=== PATIENT | female | born 1940 | race Caucasian/White ===

== ENCOUNTER 2018-01-10 10:42 | Inpatient (IN) ==
[~2018-01-10 10:42] MED LIST: Iohexol 350 MG/ML 100 ML Vial (for Cath Lab) IVCONTRAST ONE
[2018-01-10 11:09] LABS: Bilirubin,Urine Negative (Negative); Clarity,Urine Clear (Clear); Glucose,Urine (UA) Negative (Negative); Leukocyte Esterase,Urine Negative (Negative); Nitrite,Urine Negative (Negative); PH,Urine 5.5 (5.0-8.5); Specific Gravity,Urine Less/Equal 1.005 (1.002-1.035); Urobilinogen,Urine 0.2 mg/dL (Less than 2)
[2018-01-10 11:15] LABS: Color,Urine Straw (Yellw/Straw); Squamous Epithelial Cell,Urine 0-5 /hpf (0-5); WBC,Urine 0-5 /hpf (0-5)
[2018-01-10] MEDS ORDERED: hydrALAZINE HCl Inj 20 MG/ML Vial IV.PUSH ONE (12:19)
[2018-01-10] MEDS ORDERED: Labetalol HCl Inj 100 MG/20 ML Vial IV.PUSH ONE (12:47)
[2018-01-10 12:56] LABS: Chloride 108 meq/L (98-107); Potassium 3.9 meq/L (3.5-5.1); Sodium 141 meq/L (136-145)
[2018-01-10 13:00] LABS: Albumin 3.8 g/dL (3.4-5.0); Anion Gap 8 meq/L (5-15); Blood Urea Nitrogen 14 mg/dL (7-18); Calcium 8.7 mg/dL (8.5-10.1); Carbon Dioxide 24.8 meq/L (21.0-32.0); Glucose,Random 98 mg/dL (74-106)
[2018-01-10 13:01] LABS: Activated Partial Thrombo Time 25.4 sec (24.3-30.1); Prothrombin Time 10.6 sec (9.8-11.6)
[2018-01-10 13:03] LABS: Alanine Aminotransferase 34 U/L (10-53); Aspartate Aminotransferase 30 U/L (15-37); Glomerular Filtration Rate 74 mL/min (>89)
[2018-01-10 13:05] LABS: Total Protein 7.9 g/dL (6.4-8.2)
[2018-01-10 13:06] LABS: Alkaline Phosphatase 52 U/L (45-117)
[2018-01-10 13:10] LABS: Baso % (Auto) 0.7 % (0.0-2.0); Eos # (Auto) 0.1 th/mm3 (0.0-0.4); Eos % (Auto) 1.8 % (0.0-4.0); Hematocrit 38.8 % (35.0-46.0); Hemoglobin 13.1 gm/dL (11.6-15.3); Lymph # (Auto) 1.1 th/mm3 (1.0-4.8); Lymph % (Auto) 22.1 % (9.0-44.0); Mean Corpuscular HGB Conc 33.8 % (32.0-36.0); Mean Corpuscular Hemoglobin 31.3 pg (27.0-34.0); Mean Corpuscular Volume 92.5 fL (80.0-100.0); Mean Platelet Volume 7.9 fL (7.0-11.0); Mono # (Auto) 0.3 th/mm3 (0.0-0.9); Mono % (Auto) 6.9 % (0.0-8.0); Neut # (Auto) 3.4 th/mm3 (1.8-7.7); Neut % (Auto) 68.5 % (16.0-70.0); Platelet Count 261 th/mm3 (150-450); Red Blood Count 4.19 mil/mm3 (4.00-5.30); Red Cell Distribution Width 13.2 % (11.6-17.2); White Blood Count 4.9 th/mm3 (4.0-11.0)
[2018-01-10 13:11] LABS: Troponin I 0.86 ng/mL (0.02-0.05)
--- NOTE | 2018-01-10 13:14 | ED ---
HPI General Chief complaint: Hypertension Stated complaint: possible high bp/pain down neck/lt shoulder Time Seen by Provider: 01/10/18 12:05 Source: patient Mode of arrival: ambulatory Limitations: no limitations History of Present Illness HPI narrative: Patient is a 77-year-old female who presents the emergency room for evaluation of possible hypertension. Patient reports that she follows up with a chiropractor as she does have chronic hip/back pain. Patient went for manipulation today and her blood pressure was checked, patient's blood pressure was elevated at 189/90. Reports concerns that her blood pressure was high, the chiropractor told her to go directly to the emergency room. Patient does follow-up with a primary care doctor, Dr. Julianna Beck, she was last seen about 6 months ago and she had a normal blood pressure at that point. Patient does reports that she did have hypertension when she was on CellCept for her Sjorn's - since she is no longer on CellCept - she is no longer taking any antihypertensives. Patient reports that for the past month, she has been having neck and shoulder pain. Patient reports that she has been having radicular pain down her left shoulder to her left fingers -denies any injuries to her neck or shoulder. Reports that she has not had manipulation to her neck. Reports that pain has increased over the past week. Denies any chest pain/sob. Denies any diaphoresis. Denies n/v. Patient with no other complaints. Related Data Home Medications Medication Instructions Recorded Confirmed No Known Home Medications 01/10/18 01/10/18 Previous Rx's Medication Instructions Recorded amlodipine [Norvasc] 5 mg PO DAILY #90 tab 01/11/18 aspirin [Omar Chewable Aspirin] 81 mg PO DAILY #90 tab 01/11/18 atorvastatin [Lipitor] 40 mg PO DAILY #90 tab 01/11/18 clopidogrel [Plavix] 75 mg PO DAILY #30 tab 01/11/18 metoprolol tartrate 25 mg PO BID #60 tab 01/11/18 Allergies Allergy/AdvReac Type Severity Reaction Status Date / Time morphine Allergy Hives Verified 01/10/18 11:58 azathioprine [From Imuran] AdvReac Nausea/Vomi Verified 01/10/18 11:01 ting hydroxychloroquine AdvReac Itching, Verified 01/10/18 11:01 [From Plaquenil] Generalized mycophenolate mofetil AdvReac Joint Pain Verified 01/10/18 11:01 [From CellCept] Review of Systems ROS: all other systems reviewed are negative [facility] Medical History Medical History Rheumatoid arthritis (Acute) Surgical History Surgical History H/O lithotripsy (Acute) Family History Family History Other Family history of heart disease Social History Social History Substance History: No History of Abuse Second Hand Smoke Exposure: No Smoking Status: Former smoker Number of Pack-Years (if former smoker): 25 How Often Do You Have a Drink Containing Alcohol: 2 to 3 times a week Recent Travel in [facility] within the Last 8 Weeks: No Recent Out of Country Travel within the Last 8 Weeks: No Immunization History Tetanus Immunization: Unsure Hx Influenza Vaccine This Season: No Exam Narrative Exam Narrative: GENERAL: NAD SKIN: Focused skin assessment warm/dry. HEAD: Atraumatic. Normocephalic. EYES: Pupils equal and round. No scleral icterus. No injection or drainage. ENT: No nasal bleeding or discharge. Mucous membranes pink and moist. NECK: Trachea midline. No JVD. CARDIOVASCULAR: Regular rate and rhythm. No murmur appreciated. RESPIRATORY: No accessory muscle use. Clear to auscultation. Breath sounds equal bilaterally. GASTROINTESTINAL: Abdomen soft, non-tender, nondistended. Hepatic and splenic margins not palpable. MUSCULOSKELETAL: No obvious deformities. No clubbing. No cyanosis. No edema. NEUROLOGICAL: Awake and alert. No obvious cranial nerve deficits. Motor grossly within normal limits. Normal speech. CN 2- 12 grossly intact with no neurological deficits PSYCHIATRIC: Appropriate mood and affect; insight and judgment normal. Course Initial Documented Vital Signs Temperature 98.5 F 01/10/18 10:52 Pulse Rate 90 01/10/18 10:52 Respiratory Rate 18 01/10/18 10:52 Blood Pressure 230/93 H 01/10/18 10:52 Pulse Oximetry 96 01/10/18 10:52 Last Documented Vital Signs Temperature 98.1 F 01/11/18 07:37 Pulse Rate 80 01/11/18 10:00 Respiratory Rate 18 01/11/18 07:37 Blood Pressure 122/68 09/15/18 07:37 Pulse Oximetry 97 01/11/18 08:38 Critical Care Time Critical Care Time: Yes Total Critical Care Time: 30 Attestation: Aggregate critical care time was 30 minutes. Time to perform other separately billable procedures was not included in the critical care time. My time did not include minutes spent treating any other patients simultaneously or on activities that did not directly contribute to the patient's treatment. The services I provided to this patient were to treat and/or prevent clinically significant deterioration that could result in: , decompensation, deterioration I provided critical care services requiring my management, as noted below: Chart data review, documentation time, medication orders and management, vital sign assessments/reviewing monitor data, ordering and reviewing lab tests, ordering and interpreting/reviewing x-rays and diagnostic studies, care of the patient and discussion of the patient with the admitting physicians. Medical Decision Making MDM Narrative Medical decision making narrative: During the course of the patients emergency department visit, the patients history, examination, and differential diagnosis were reviewed with the patient. The patient was placed on a surveillance system monitor with oximetry and frequent blood pressure monitoring. The patient had an IV access obtained and blood work sent for analysis. The patient was initially provided with IV labetalol as her blood pressure was 199/86 The patients laboratory studies were reviewed and remarkable for a positive trop of 0.86. She will be given a dose of aspirin and start heparin drip Case reviewed with Dr. Kadeem Taveras - ronni transfer to [facility] for possible cardiac cath, will keep patient NPO Dr. Hutchinson accepts patient to service. Medical Screen Exam Complete: Yes Emergency Medical Condition: Yes Differential Diagnosis Differential Diagnosis: Hypertensive urgency, angina, electrolyte abnormality, cervical radiculopathy Lab Data Result diagrams: 01/11/18 05:09 01/11/18 05:09 Lab Results 01/10/18 01/10/18 01/10/18 Range/Units 11:00 12:30 12:30 CBC w Diff Auto diff final WBC 4.9 (4.0-11.0) th/mm3 RBC 4.19 (4.00-5.30) mil/mm3 Hgb 13.1 (11.6-15.3) gm/dL Hct 38.8 (35.0-46.0) % MCV 92.5 (80.0-100.0) fL MCH 31.3 (27.0-34.0) pg MCHC 33.8 (32.0-36.0) % RDW 13.2 (11.6-17.2) % Plt Count 261 (150-450) th/mm3 MPV 7.9 (7.0-11.0) fL Neut % (Auto) 68.5 (16.0-70.0) % Lymph % (Auto) 22.1 (9.0-44.0) % Emmons % (Auto) 6.9 (0.0-8.0) % Eos % (Auto) 1.8 (0.0-4.0) % Baso % (Auto) 0.7 (0.0-2.0) % Neut # (Auto) 3.4 (1.8-7.7) th/mm3 Lymph # (Auto) 1.1 (1.0-4.8) th/mm3 Emmons # (Auto) 0.3 (0.0-0.9) th/mm3 Eos # (Auto) 0.1 (0.0-0.4) th/mm3 Baso # (Auto) 0.0 (0.0-0.2) th/mm3 WBC Differential . Differential Comment . PT 10.6 (9.8-11.6) sec INR 1.0 Ratio APTT 25.4 (24.3-30.1) sec Sodium (136-145) meq/L Potassium (3.5-5.1) meq/L Chloride (98-107) meq/L Carbon Dioxide (21.0-32.0) meq/L Anion Gap (5-15) meq/L BUN (7-18) mg/dL Creatinine (0.50-1.00) mg/dL Estimated GFR (>89) mL/min Random Glucose (74-106) mg/dL Calcium (8.5-10.1) mg/dL Total Bilirubin (0.2-1.0) mg/dL AST (15-37) U/L ALT (10-53) U/L Alkaline Phosphatase (45-117) U/L Total Creatine Kinase (26-192) U/L CK-MB (CK-2) (0.5-3.6) ng/mL CK-MB (CK-2) % (0.0-4.0) % Troponin I (0.02-0.05) ng/mL Total Protein (6.4-8.2) g/dL Albumin (3.4-5.0) g/dL Triglycerides (42-150) mg/dL Cholesterol (120-200) mg/dL LDL Cholesterol, Calc (0-99) mg/dL HDL Cholesterol (40.0-60.0) mg/dL Cholesterol/HDL Ratio Ratio TSH (0.358-3.740) uIU/mL Ur Collection Type Clean catch Urine Color Straw (Yellw/Straw) Urine Clarity Clear (Clear) Urine pH 5.5 (5.0-8.5) Ur Specific [employer] Less/equal 1.005 (1.002-1.035) Urine Protein Negative (Neg-Trace) mg/dL Urine Glucose (UA) Negative (Negative) mg/dL Urine Ketones Negative (Negative) mg/dL Urine Occult Blood Negative (Negative) Urine Nitrate Negative (Negative) Urine Bilirubin Negative (Negative) Urine Urobilinogen 0.2 (Less than 2) mg/dL Ur Leukocyte Esterase Negative (Negative) Urine WBC 0-5 (0-5) /hpf Ur Squamous Epith Cells 0-5 (0-5) /hpf Micro UA Comment Culture not ind Ur Microscopic Review Microscopic reviewed Urine Culture Comments Culture not ind 01/10/18 01/10/18 01/10/18 Range/Units 12:30 12:30 15:15 CBC w Diff WBC (4.0-11.0) th/mm3 RBC (4.00-5.30) mil/mm3 Hgb (11.6-15.3) gm/dL Hct (35.0-46.0) % MCV (80.0-100.0) fL MCH (27.0-34.0) pg MCHC (32.0-36.0) % RDW (11.6-17.2) % Plt Count (150-450) th/mm3 MPV (7.0-11.0) fL Neut % (Auto) (16.0-70.0) % Lymph % (Auto) (9.0-44.0) % Emmons % (Auto) (0.0-8.0) % Eos % (Auto) (0.0-4.0) % Baso % (Auto) (0.0-2.0) % Neut # (Auto) (1.8-7.7) th/mm3 Lymph # (Auto) (1.0-4.8) th/mm3 Emmons # (Auto) (0.0-0.9) th/mm3 Eos # (Auto) (0.0-0.4) th/mm3 Baso # (Auto) (0.0-0.2) th/mm3 WBC Differential Differential Comment PT (9.8-11.6) sec INR Ratio APTT (24.3-30.1) sec Sodium 141 (136-145) meq/L Potassium 3.9 (3.5-5.1) meq/L Chloride 108 H (98-107) meq/L Carbon Dioxide 24.8 (21.0-32.0) meq/L Anion Gap 8 (5-15) meq/L BUN 14 (7-18) mg/dL Creatinine 0.76 (0.50-1.00) mg/dL Estimated GFR 74 L (>89) mL/min Random Glucose 98 (74-106) mg/dL Calcium 8.7 (8.5-10.1) mg/dL Total Bilirubin 0.4 (0.2-1.0) mg/dL AST 30 (15-37) U/L ALT 34 (10-53) U/L Alkaline Phosphatase 52 (45-117) U/L Total Creatine Kinase 198 H (26-192) U/L CK-MB (CK-2) 4.5 H (0.5-3.6) ng/mL CK-MB (CK-2) % 2.3 (0.0-4.0) % Troponin I 0.86 H* 2.19 H* D (0.02-0.05) ng/mL Total Protein 7.9 (6.4-8.2) g/dL Albumin 3.8 (3.4-5.0) g/dL Triglycerides (42-150) mg/dL Cholesterol (120-200) mg/dL LDL Cholesterol, Calc (0-99) mg/dL HDL Cholesterol (40.0-60.0) mg/dL Cholesterol/HDL Ratio Ratio TSH 0.716 (0.358-3.740) uIU/mL Ur Collection Type Urine Color (Yellw/Straw) Urine Clarity (Clear) Urine pH (5.0-8.5) Ur Specific [employer] (1.002-1.035) Urine Protein (Neg-Trace) mg/dL Urine Glucose (UA) (Negative) mg/dL Urine Ketones (Negative) mg/dL Urine Occult Blood (Negative) Urine Nitrate (Negative) Urine Bilirubin (Negative) Urine Urobilinogen (Less than 2) mg/dL Ur Leukocyte Esterase (Negative) Urine WBC (0-5) /hpf Ur Squamous Epith Cells (0-5) /hpf Micro UA Comment Ur Microscopic Review Urine Culture Comments 01/11/18 01/11/18 Range/Units 05:09 05:09 CBC w Diff WBC 4.2 (4.0-11.0) th/mm3 RBC 3.75 L (4.00-5.30) mil/mm3 Hgb 11.6 (11.6-15.3) gm/dL Hct 35.0 (35.0-46.0) % MCV 93.5 (80.0-100.0) fL MCH 30.8 (27.0-34.0) pg MCHC 33.0 (32.0-36.0) % RDW 14.0 (11.6-17.2) % Plt Count 217 (150-450) th/mm3 MPV 7.7 (7.0-11.0) fL Neut % (Auto) 55.7 (16.0-70.0) % Lymph % (Auto) 28.2 (9.0-44.0) % Emmons % (Auto) 11.1 H (0.0-8.0) % Eos % (Auto) 4.0 (0.0-4.0) % Baso % (Auto) 1.0 (0.0-2.0) % Neut # (Auto) 2.3 (1.8-7.7) th/mm3 Lymph # (Auto) 1.2 (1.0-4.8) th/mm3 Emmons # (Auto) 0.5 (0.0-0.9) th/mm3 Eos # (Auto) 0.2 (0.0-0.4) th/mm3 Baso # (Auto) 0.0 (0.0-0.2) th/mm3 WBC Differential . Differential Comment Auto diff final PT (9.8-11.6) sec INR Ratio APTT (24.3-30.1) sec Sodium 143 (136-145) meq/L Potassium 3.4 L (3.5-5.1) meq/L Chloride 109 H (98-107) meq/L Carbon Dioxide 25.3 (21.0-32.0) meq/L Anion Gap 9 (5-15) meq/L BUN 12 (7-18) mg/dL Creatinine 0.70 (0.50-1.00) mg/dL Estimated GFR 82 L (>89) mL/min Random Glucose 89 (74-106) mg/dL Calcium 8.0 L (8.5-10.1) mg/dL Total Bilirubin (0.2-1.0) mg/dL AST (15-37) U/L ALT (10-53) U/L Alkaline Phosphatase (45-117) U/L Total Creatine Kinase 159 (26-192) U/L CK-MB (CK-2) (0.5-3.6) ng/mL CK-MB (CK-2) % (0.0-4.0) % Troponin I (0.02-0.05) ng/mL Total Protein (6.4-8.2) g/dL Albumin (3.4-5.0) g/dL Triglycerides 226 H (42-150) mg/dL Cholesterol 219 H (120-200) mg/dL LDL Cholesterol, Calc 131 H (0-99) mg/dL HDL Cholesterol 42.5 (40.0-60.0) mg/dL Cholesterol/HDL Ratio 5.15 Ratio TSH (0.358-3.740) uIU/mL Ur Collection Type Urine Color (Yellw/Straw) Urine Clarity (Clear) Urine pH (5.0-8.5) Ur Specific [employer] (1.002-1.035) Urine Protein (Neg-Trace) mg/dL Urine Glucose (UA) (Negative) mg/dL Urine Ketones (Negative) mg/dL Urine Occult Blood (Negative) Urine Nitrate (Negative) Urine Bilirubin (Negative) Urine Urobilinogen (Less than 2) mg/dL Ur Leukocyte Esterase (Negative) Urine WBC (0-5) /hpf Ur Squamous Epith Cells (0-5) /hpf Micro UA Comment Ur Microscopic Review Urine Culture Comments Imaging Data Radiologist's impression: Cervical Spine CT 01/10/18 12:16 CONCLUSION: 1. Moderate to severe degenerative disc disease. 2. Broad-based posterior disc protrusions at the C4-5 and C5-6 with epidural effacement but no significant spinal cord compression. 3. Moderate to severe degenerative disc disease at C6-7 with posterior disc osteophyte complex causing mild epidural effacement. 4. Mild to moderate foraminal encroachment as described. 5. No acute bony abnormality. Chest X-Ray 01/10/18 12:16 CONCLUSION: COPD No evidence of acute process. Head CT 01/10/18 12:16 CONCLUSION: No acute intracranial findings. . Shoulder X-Ray 01/10/18 12:16 CONCLUSION: Left shoulder series within normal limits. ECG Data EKG Prior to Arrival: No Attestation: I personally reviewed and interpreted this ECG as follows: Interpretation: EKG at 1226: NSR at 82bpm, qt/qtc: 387/425, no acute st or t wave changes Discharge Plan Discharge Disposition Patient Disposition: 01 Discharge Home Discharge Condition Condition: Good Discharge Order Discharge Orders: Discharge Order (Routine); Ordered 01/11/18 Ordered By: Alisha Vigil Discharge Details Anticipated Discharge Date: 01/11/18 Physicians Team ED Provider: Ramona Benson Primary Care Provider: UNKNOWN, Attending Provider: Alisha Vigil Other Providers: Kadeem Taveras Status ED Status: Left Department Discharge Information Discharge Date/Time: 01/10/18 15:30
--- NOTE | 2018-01-10 13:19 | XR ---
EXAM DATE: 01/10/2018 1:05 PM EDT AGE/SEX: 77 years / Female INDICATIONS: Pain and tingling in left shoulder and left side of neck. CLINICAL DATA: This is the patient's initial encounter. Patient reports that signs and symptoms have been present for 2 weeks and indicates a pain score of 2/10. MEDICAL/SURGICAL HISTORY: None. None. COMPARISON: POI, XR SHOULDER (MIN 4 VIEWS), LEFT, 05/16/2017. . FINDINGS: 8 views of the left shoulder. Bone alignment within normal limits. No evidence of fracture. Acromiocl avicular joint within normal limits. CONCLUSION: Left shoulder series within normal limits. Electronically signed by: Jeff Btuler MD 01/10/2018 1:17 PM EDT
--- NOTE | 2018-01-10 13:19 | XR ---
EXAM DATE: 01/10/2018 1:03 PM EDT AGE/SEX: 77 years / Female INDICATIONS: Pain and tingling in left shoulder and left side of neck. CLINICAL DATA: This is the patient's initial encounter. Patient reports that signs and symptoms have been present for 2 weeks and indicates a pain score of 2/10. MEDICAL/SURGICAL HISTORY: None. None. COMPARISON: No prior exams available for comparison. FINDINGS: Lungs are hyperinflated. There is no evidence of acute airspace disease, suspicious nodular densities or effusions. Heart is within normal limits in size. Osseous structures are intact. CONCLUSION: COPD No evidence of acute process. Electronically signed by: Xander Samayoa MD 01/10/2018 1:17 PM EDT
--- NOTE | 2018-01-10 13:20 | CT ---
EXAM DATE: 01/10/2018 1:13 PM EDT AGE/SEX: 77 years / Female INDICATIONS: Cephalgia. Elevated blood pressure. CLINICAL DATA: This is the patient's initial encounter. Patient reports that signs and symptoms have been present for 1 week and indicates a pain score of 2/10. MEDICAL/SURGICAL HISTORY: Hypertension. Renal calculi. Lithotripsy. RADIATION DOSE: 60.90 CTDI (mGy) COMPARISON: No prior exams available for comparison. TECHNIQUE: CT of the head without contrast. Using automated exposure control and adjustment of the mA and/or kV according to patient size, radiation dose was kept as low as reasonably achievable to ob tain optimal diagnostic quality images. DICOM format image data is available electronically for revi ew and comparison. FINDINGS: Cerebrum: The ventricles are normal for age. No evidence of midline shift, mass lesion, hemorrhage or acute infarction. No extraaxial fluid collections are seen. Periventricular white matter hypodens ities indicating chronic ischemic changes seen in the frontal regions bilaterally Posterior Fossa: The cerebellum and brainstem are intact. The 4th ventricle is midline. The cerebe llopontine angle is unremarkable. Extracranial: The visualized portion of the orbits is intact. Skull: The calvaria is intact. No evidence of skull fracture. CONCLUSION: No acute intracranial findings. . Electronically signed by: Jeff Butler MD 01/10/2018 1:19 PM EDT
--- NOTE | 2018-01-10 13:41 | CT ---
EXAM DATE: 01/10/2018 1:22 PM EDT AGE/SEX: 77 years / Female INDICATIONS: Neck pain with radiculopathy down left arm. Tingling into left fingers. CLINICAL DATA: This is the patient's initial encounter. Patient reports that signs and symptoms have been present for 1 week and indicates a pain score of 6/10. MEDICAL/SURGICAL HISTORY: Hypertension. Renal calculi. Lithotripsy. RADIATION DOSE: 25.24 CTDI (mGy) COMPARISON: No prior exams available for comparison. TECHNIQUE: Contiguous axial images were obtained using helical multirow detector technique. The vol umetric data was post-processed with multiplanar reconstruction in oblique axial, sagittal, and coron al planes. Using automated exposure control and adjustment of the mA and/or kV according to patient s ize, radiation dose was kept as low as reasonably achievable to obtain optimal diagnostic quality ajay ges. DICOM format image data is available electronically for review and comparison. FINDINGS: ALIGNMENT: Vertebral bodies are satisfactorily aligned without evidence of listhesis. FACET AND OSSEOUS STRUCTURES: Vertebral body height is well-maintained. There is no evidence of acut e fracture, or destructive changes. Moderate hypertrophic facet arthropathy is identified of the righ t at C2-3. INTERVERTEBRAL DISC SPACES: Degenerative disc disease ranging from mild to moderately severe is note d. C2-3: Mild degenerative disc disease with disc space narrowing. There is no evidence of disc herniati on, foraminal encroachment or spinal stenosis. C3-4: Moderate degenerative disc disease with disc space narrowing and marginal spondylosis. There is a broad-based posterior disc osteophyte complex with mild anterior epidural effacement and mild left foraminal encroachment. C4-5: Moderate degenerative disc disease with marginal spondylosis. There is a moderate-sized central and right paracentral disc protrusion with anterior epidural effacement. There is no significant bon y encroachment of the neural foramen. C5-6: Moderate to severe degenerative disc disease with disc space narrowing and marginal spondylosis . There is a mild to moderate broad-based disc protrusion with anterior epidural effacement. There is no significant foraminal encroachment. C6-7: Moderate to severe degenerative disc disease with disc space narrowing. There is broad-based di sc osteophyte complex with mild anterior epidural effacement and moderate bilateral foraminal encroac hment. C7-T1: Unremarkable NEUROLOGIC STRUCTURES: No evidence of significant spinal cord compression. . CONCLUSION: 1. Moderate to severe degenerative disc disease. 2. Broad-based posterior disc protrusions at the C4-5 and C5-6 with epidural effacement but no signi ficant spinal cord compression. 3. Moderate to severe degenerative disc disease at C6-7 with posterior disc osteophyte complex causi ng mild epidural effacement. 4. Mild to moderate foraminal encroachment as described. 5. No acute bony abnormality. Electronically signed by: Xander Samayoa MD 01/10/2018 1:40 PM EDT
[2018-01-10] MEDS ORDERED: Heparin 10,000 UNITS/10 ML Vial (for IV use) IV.PUSH STA (13:44)
[2018-01-10] MEDS ORDERED: Heparin Drip 25,000 UNIT/250 ML BAG IV.CONT PRN (13:44)
[2018-01-10] MEDS ORDERED: ALPRAZolam 0.25 MG Tablet PO PRN (14:19)
[2018-01-10] MEDS ORDERED: Acetaminophen 325 MG Tablet PO PRN (14:19)
[2018-01-10] MEDS ORDERED: Docusate Sodium 100 MG Capsule PO PRN (14:19)
[2018-01-10] MEDS ORDERED: Metoprolol Inj 5 MG/5 ML Vial IV.PUSH PRN (14:24)
--- NOTE | 2018-01-10 14:35 | P.HP ---
History of Present Illness Primary Care Physician: UNKNOWN Chief Complaint: Sent here by chiropractor for elevated blood pressure History of Present Illness: 77-year-old female with history of rheumatoid arthritis, possible lupus who presented the hospital at the request of her chiropractor for evaluation of elevated blood pressure. Patient was at her chiropractor's office today for evaluation and treatment for neck pain that she has been experiencing for the last 2 weeks. Patient states that the pain has been constant discomfort on a scale of 5/10 in the left neck with pain radiating into her left shoulder. Patient indicates that over the last week, patient has had worsening of symptoms as well as whenever she lies down she gets numbness in her left arm. T patient was at the chiropractor's office today for treatment when they took her blood pressure and was found to be significantly elevated, because of that the chiropractor's office sent her straight to the emergency department for evaluation. Patient denies any previous history of hypertension, patient indicates that in the past, she cannot explain exactly how long ago she used to be on a diuretic in which she states that it was for her lupus/rheumatoid arthritis. The patient denies any chest pain, nausea, vomiting, shortness of breath, dyspnea, diaphoresis. When the patient got to the emergency department she was found to have significant blood pressure elevation 230/93. The patient had workup performed and was found to have an elevated troponin at 0.86. EKGs were reviewed which did not show any acute ST elevations. [employer] Analyst was called who recommended the patient be transferred to the [facility] for cardiac catheterization. - Diagnosis (1) Hypertensive emergency (2) Non-ST elevated myocardial infarction (3) Elevated troponin Review of Systems All other systems reviewed negative except as stated in HPI Musculoskeletal: Reports neck pain, Reports numbness (Left arm), Reports radiating pain into limb (Left shoulder) [facility] - History History Provided By: Patient - Medical History Medical History: Medical History (Last Reviewed 01/10/18 @ 14:17 by KOREY Leigh) Rheumatoid arthritis - Surgical History Surgical History: Surgical History (Last Reviewed 01/10/18 @ 14:17 by KOREY Leigh) H/O lithotripsy - Family History Family History: Family History (Last Updated 01/10/18 @ 14:17 by KOREY Leigh) Other Family history of heart disease - Tobacco History Second Hand Smoke Exposure: No Tobacco Use In Past 30 Days: No Smoking Status: Former smoker Number of Pack Years (if former smoker): 25 - Alcohol History How Often Do You Have a Drink Containing Alcohol: 2 to 3 times a week - Substance Use History Substance History: No History of Abuse - Travel History Recent Travel in the [place] Within the Last 8 Weeks: No Recent Travel Out of the Country Within the Last 8 Weeks: No - Immunization History Tetanus Immunization: Unsure Hx Influenza Vaccine This Season: No Medications and Allergies Active Medications: Active Medications Heparin Sodium/Dextrose (Heparin/D5w 25,000 U/250 Ml) 25,000 unit in 250 mls @ 0 mls/hr IV.CONT TITRATE PRN; Protocol PRN Reason: Per Protocol Last Admin: 01/10/18 13:59 Dose: 900 units/hr, 9 mls/hr Sodium Chloride (Ns Flush) 2 ml IV.FLUSH UNSCH PRN PRN Reason: FLUSH AFTER USING IV ACCESS Allergies Allergy/AdvReac Type Severity Reaction Status Date / Time morphine Allergy Hives Verified 01/10/18 11:58 azathioprine [From Imuran] AdvReac Nausea/Vomi Verified 01/10/18 11:01 ting hydroxychloroquine AdvReac Itching, Verified 01/10/18 11:01 [From Plaquenil] Generalized mycophenolate mofetil AdvReac Joint Pain Verified 01/10/18 11:01 [From CellCept] Home Medications Medication Instructions Recorded Confirmed Type No Known Home Medications 01/10/18 01/10/18 History Exam Vital signs: Vital Signs 01/10/18 10:52 01/10/18 12:00 Temperature 98.5 F Pulse Rate 90 76 Respiratory Rate 18 18 Blood Pressure 230/93 H 199/86 H Pulse Oximetry 96 Intake & Output 01/09/18 01/10/18 01/10/18 18:59 06:59 18:59 Weight 71 kg Narrative: GENERAL: Well-developed, well-nourished, in no acute distress. alert and orientated HEENT: Head is normocephalic without any lesions or masses noted. Facial features are symmetric. Eyes: Pupils equal round reactive to light. Extraocular muscles are intact. Conjunctivae were clear. Oropharyngeal: Pharynx without any erythema edema. Tongue is midline without deviation. Buccal mucosa is moist without any masses or lesions NECK: Supple without any masses. Trachea midline no deviation. No JVD, no bruits are appreciated CARDIAC: Regular rhythm, regular rate. S1/S2 are heard. No murmurs gallops or rubs. LUNGS: Clear to auscultation bilaterally. No wheeze, rhonchi or rales. No use of accessory muscles on inspiration or expiration. ABDOMEN: Soft, nontender. Nondistended. Bowel sounds heard in all 4 quadrants. No organomegaly or masses. Negative rebound, negative guarding EXTREMITIES: No edema, pulses are equal bilaterally. No cyanosis or clubbing NEUROLOGY: Mood and affect appear appropriate. Cranial nerves II through XII grossly intact. Muscle strength 5/5 in upper and lower extremities bilaterally. Deep tendon reflexes are 2+ in upper and lower extremities bilaterally. Results - Labs CBC & Chem 7: 01/10/18 12:30 01/10/18 12:30 Labs: Laboratory Results - last 24 hr 01/10/18 01/10/18 01/10/18 11:00 12:30 12:30 CBC w Diff Auto diff final WBC 4.9 RBC 4.19 Hgb 13.1 Hct 38.8 MCV 92.5 MCH 31.3 MCHC 33.8 RDW 13.2 Plt Count 261 MPV 7.9 Neut % (Auto) 68.5 Lymph % (Auto) 22.1 [place] % (Auto) 6.9 Eos % (Auto) 1.8 Baso % (Auto) 0.7 Neut # (Auto) 3.4 Lymph # (Auto) 1.1 [place] # (Auto) 0.3 Eos # (Auto) 0.1 Baso # (Auto) 0.0 WBC Differential . Differential Comment . PT 10.6 INR 1.0 APTT 25.4 Sodium Potassium Chloride Carbon Dioxide Anion Gap BUN Creatinine Estimated GFR Random Glucose Calcium Total Bilirubin AST ALT Alkaline Phosphatase Troponin I Total Protein Albumin Ur Collection Type Clean catch Urine Color Straw Urine Clarity Clear Urine pH 5.5 Ur Specific [place] Less/equal 1.005 Urine Protein Negative Urine Glucose (UA) Negative Urine Ketones Negative Urine Occult Blood Negative Urine Nitrate Negative Urine Bilirubin Negative Urine Urobilinogen 0.2 Ur Leukocyte Esterase Negative Urine WBC 0-5 Ur Squamous Epith Cells 0-5 Micro UA Comment Culture not ind Ur Microscopic Review Microscopic reviewed Urine Culture Comments Culture not ind 01/10/18 12:30 CBC w Diff WBC RBC Hgb Hct MCV MCH MCHC RDW Plt Count MPV Neut % (Auto) Lymph % (Auto) [place] % (Auto) Eos % (Auto) Baso % (Auto) Neut # (Auto) Lymph # (Auto) [place] # (Auto) Eos # (Auto) Baso # (Auto) WBC Differential Differential Comment PT INR APTT Sodium 141 Potassium 3.9 Chloride 108 H Carbon Dioxide 24.8 Anion Gap 8 BUN 14 Creatinine 0.76 Estimated GFR 74 L Random Glucose 98 Calcium 8.7 Total Bilirubin 0.4 AST 30 ALT 34 Alkaline Phosphatase 52 Troponin I 0.86 H* Total Protein 7.9 Albumin 3.8 Ur Collection Type Urine Color Urine Clarity Urine pH Ur Specific [place] Urine Protein Urine Glucose (UA) Urine Ketones Urine Occult Blood Urine Nitrate Urine Bilirubin Urine Urobilinogen Ur Leukocyte Esterase Urine WBC Ur Squamous Epith Cells Micro UA Comment Ur Microscopic Review Urine Culture Comments - Imaging Impressions Cervical Spine CT 01/10/18 12:16 CONCLUSION: 1. Moderate to severe degenerative disc disease. 2. Broad-based posterior disc protrusions at the C4-5 and C5-6 with epidural effacement but no significant spinal cord compression. 3. Moderate to severe degenerative disc disease at C6-7 with posterior disc osteophyte complex causing mild epidural effacement. 4. Mild to moderate foraminal encroachment as described. 5. No acute bony abnormality. Chest X-Ray 01/10/18 12:16 CONCLUSION: COPD No evidence of acute process. Head CT 01/10/18 12:16 CONCLUSION: No acute intracranial findings. . Shoulder X-Ray 01/10/18 12:16 CONCLUSION: Left shoulder series within normal limits. Caprini VTE Risk Assessment Caprini VTE Risk Assessment: No/Low Risk (score <= 1) Caprini Risk Assessment Model: Point Value = 1 Point Value = 2 Point Value = 3 Point Value = 5 Age 41-60 Minor surgery BMI > 25 kg/m2 Swollen legs Varicose veins or History of unexplained or recurrent spontaneous Oral contraceptives or hormone replacement Sepsis (< 1 month) Serious lung disease, including pneumonia (< 1 month) Abnormal pulmonary function Acute myocardial infarction Congestive heart failure (< 1 month) History of inflammatory bowel disease Medical patient at bed rest Age 61-74 Arthroscopic surgery Major open surgery (> 45 min) Laparoscopic surgery (> 45 min) Malignancy Confined to bed (> 72 hours) Immobilizing plaster cast Central venous access Age >= 75 History of VTE Family history of VTE Factor V Leiden Prothrombin [id number] Lupus anticoagulant Anticardiolipin antibodies Elevated serum homocysteine Heparin-induced thrombocytopenia Other congenital or acquired thrombophilia Stroke (< 1 month) Elective arthroplasty Hip, pelvis, or leg fracture Acute spinal cord injury (< 1 month) Prophylaxis Regimen: Total Risk Factor Score Risk Level Prophylaxis Regimen 0-1 Low Early ambulation 2 Moderate Order ONE of the following: *Sequential Compression Device (SCD) *Heparin 5000 units SQ BID 3-4 Higher Order ONE of the following medications: *Heparin 5000 units SQ TID *Enoxaparin/Lovenox 40 mg SQ daily (WT < 150 kg, CrCl > 30 mL/min) *Enoxaparin/Lovenox 30 mg SQ daily (WT < 150 kg, CrCl > 10-29 mL/min) *Enoxaparin/Lovenox 30 mg SQ BID (WT < 150 kg, CrCl > 30 mL/min) AND/OR *Sequential Compression Device (SCD) 5 or more Highest Order ONE of the following medications: *Heparin 5000 units SQ TID (Preferred with Epidurals) *Enoxaparin/Lovenox 40 mg SQ daily (WT < 150 kg, CrCl > 30 mL/min) *Enoxaparin/Lovenox 30 mg SQ daily (WT < 150 kg, CrCl > 10-29 mL/min) *Enoxaparin/Lovenox 30 mg SQ BID (WT < 150 kg, CrCl > 30 mL/min) AND *Sequential Compression Device (SCD) Assessment and Plan - Assessment (1) Hypertensive emergency Code(s): I16.1 - Hypertensive emergency Status: Acute (2) Non-ST elevated myocardial infarction Code(s): I21.4 - Non-ST elevation (NSTEMI) myocardial infarction Status: Acute (3) Elevated troponin Code(s): R74.8 - Abnormal levels of other serum enzymes Status: Acute - Plan Hypertensive emergency -Patient presented to the emergency department with initial blood pressure 230/ 93, with associated elevated troponin -Patient started on Lopressor, Nitropaste, Lopressor IV and Vasotec IV as needed -Continue monitor blood pressure Elevated troponin, possible non-ST elevated myocardial infarction -[employer] Analyst was consulted and recommends transferring to the main for cardiac catheterization, requested the patient remain n.p.o. -Patient started on heparin IV with bolus per protocol -We will start aspirin, Lopressor 12.5 mg twice daily, atorvastatin 10 mg daily , Nitropaste 1 inch every 6 hours -Obtain lipid panel -Continue to trend cardiac enzymes -Continue serial cardiac enzymes DVT prevention -Patient is on heparin IV
[2018-01-10] MEDS ORDERED: Aspirin 325 MG Tablet PO ONE (15:00)
[2018-01-10 15:22] LABS: Thyroid Stimulating Hormone 0.716 uIU/mL (0.358-3.740)
[2018-01-10 15:28] LABS: CKMB Percent 2.3 % (0.0-4.0); Creatine Kinase MB 4.5 ng/mL (0.5-3.6)
[2018-01-10] MEDS ORDERED: Sod Chloride 0.9% Inj 1,000 ML IV.CONT SCH (17:00)
[2018-01-10] MEDS ORDERED: fentaNYL Citrate Inj 100 MCG/2 ML Ampul ONE (17:34)
[2018-01-10] MEDS ORDERED: Heparin/NS PF Inj 1,500 ML ONE (17:34)
[2018-01-10] MEDS ORDERED: Heparin 10,000 UNITS/10 ML Vial (for IV use) ONE (17:34)
[2018-01-10] MEDS ORDERED: Metoprolol Inj 5 MG/5 ML Vial ONE (17:45)
[2018-01-10] MEDS ORDERED: Misc Info for Pharmacy OTHER STA (19:03)
--- NOTE | 2018-01-10 19:03 | CATHPROC ---
[facility] HIS Report Study Information Study Number Admission Scheduled Start Study Start [id number] Jan 10 2018 2:17PM 01/10/2018 Jan 10 2018 5:03PM [place] Service Cardiac Catheterization Admit Source Facility Department Emergency department [facility] - Methods And Procedures Analyst Physician and Clinical Staff Initial Kadeem Araya Collision Worker Cheryl Jackson,ALFRED Collision Worker Didi Greene,RT(R) (BS) Recorder Beverly Servin BSN Scrub Brenda Green,CREAMERY WORKER TECH2 Procedures Performed Procedure Location (Site) Vessel Name Angiogram LV LV Ventricle Coronary Angiograms LCA Left Coronary Coronary Angiograms RCA Right Coronary L Heart Cath Wire insertion Fem Art (right) Femoral Art Wire insertion Radial (right) Radial Art. Equipment Time Claims Investigator Description Size Mfg Part Number Used/Scraped TRANSDUCER, TRUWAVE [id number] 17:17 AMAYA SCALES * Used W/STOCKCOCK *[id number] INTRODUCER SET, 17:59 [employer]. FR 5 [id number] *[id number] Used MICROPUNCTURE STIFF [phone] *[id number] 538-476 *0870573 534-676T *[id number] 534-617T *[id number] [phone] *[id number] PIGTAIL ANG. 145 INFINITI [id number] CATHETER *[id number] WIRE, HYDROSTEER 150CM [id number] 17:52 DAIG/ST. KI MEDICAL 150CM Used ANGLED GLIDE *[id number] 17:17 MALLINCKRODT SYRINGE, ANGIOMAT 150ML 150ML *[id number] Used 2SUB [id number] 17:17 Karaz BLANKET,WARM AIR CCL * Used *7000548 [id number] 17:17 Karaz PACK, CCL CUSTOM * Used *[id number] 17:17 Karaz SUPPORT, ARTERIAL ADULT 19932 *6490829 Used [id number] 17:17 SolidFire PACER PEN, SKIN DUAL W/ RULER * Used *[id number] BAND, RADIAL COMPRESSION TR [id number] 18:41 Capsule Tech MEDICAL 24CM Used SHORT 24 *[id number]- 17:57 Capsule Tech MEDICAL SHEATH, FR6.5 PRELUDE 11CM FR 6.5 038ACT Used *[id number] 17:17 Sokrati WIRE, EXCHANGE 260CM 3MMJ 260CM Used *[id number] [id number] 17:17 NAMIC MANIFOLD, 4 PORT * Used *[id number] [id number] 18:04 NAMIC TUBING, HIGH PRESSURE 20" 20" Used *[id number] 17:17 NYCOMED OMNIPAQUE, 350 MG, 100ML 100ML [id number] Used 18:01 NYCOMED OMNIPAQUE, 350 MG, 50ML 50ML [id number] Used 17:17 [employer] JELCO NEEDLE 4056 *6853272 Used CATHETER, FR5 OPTITORQUE [id number] 17:51 TERUMO MEDICAL FR 5 Used RADIAL TIG 4.0 *[id number] SHEATH, FR6 TRANSRADIAL 80-1060 17:17 TERUMO MEDICAL FR 6 Used SLENDER 10CM *[id number] 18:24 VOLCANO PRIME WIRE, VERRATA 185CM 185CM Used *[id number] Equipment Model, Serial, Lot Number and Expiration Data Description Model Number Serial Number Lot Number Expiration D ate INTRODUCER SET, [id number] 12-05-2020 MICROPUNCTURE STIFF PRIME WIRE, VERRATA 185CM 05915 [id number] 09-26-2020 WIRE, HYDROSTEER 150CM [id number] 01-27-2020 ANGLED GLIDE History: Current Medications Medication Dosage/Unit Route Frequency Last Date/Time Taken ASA 325 mg 01/10/2018 History: Allergies Allergy Reaction azathioprine Nausea/Vomiting hydroxychloroquine Itching, Generalized mycophenolate mofetil Joint Pain morphine Hives History: Risk Factors Family History of Hypertension Dyslipidemia Previous CA Previous Heart Failure Premature CAD No No No No No Prior Valve Prior PCI Prior CABG Surgery No No No Cerebrovascular Peripheral Artery Chronic Lung On Dialysis Diabetes Disease Disease Disease No No No Yes No History: Stress Tests Stress or Imaging Studies Performed No History: Other Current Smoker Method Quit Packs a Day Years Used Pack Years No Cigarettes 14 Years Ago 1 40 40 Labs Hgb (g/dl) Hct (%) WBC (l/cumm) Platelets (thousands) 11.60-17.00 35.00-51.00 4.00-11.00 150.00-450.00 13.1 38.8 4.9 261 Glucose (mg/dl) BUN (mg/dl) Creatinine (mg/dl) BUN:Creatinine (1:x) 74.00-106.00 7.00-18.00 0.50-1.30 10.00-20.00 98 14 0.7 20 Na (meq/l) K (meq/l) 136.00-145.00 3.50-5.10 141 3.9 Troponin I (ng/ml) CPK (u/l) CPK-MB (ng/ML) 0.02-0.05 26.00-308.00 0.50-3.60 2.19 198 4.5 Medication Medication Total Dose (Bolus/Oral) Medication Total Dosage/Unit 1% XYLOCAINE 30 mL FENTANYL 25 mcg NTG (IC) 200 mcg RADIAL COCKTAIL 5 mL (Bolus) VERSED 3 mg Medications (Bolus/Oral) Medication Time Given Dosage/Unit Administered By Gretchen 1% XYLOCAINE 01/10/2018 5:44:04 PM 10 mL Kadeem Taveras 10 mL 1% XYLOCAINE given in lab by Kadeem Taveras in Right Radial via Subcutaneous. Ordered by Kadeem Taveras. VERSED 01/10/2018 5:44:38 PM 1 mg Cheryl Jackson 1 mg VERSED given in lab by Cheryl Jackson RN via Peripheral IV. Ordered by Kadeem Taveras. FENTANYL 01/10/2018 5:45:48 PM 25 mcg Cheryl Jackson 25 mcg FENTANYL given in lab by Cheryl Jackson RN via Peripheral IV. Ordered by Kadeem Taveras. VERSED 01/10/2018 5:47:28 PM 1 mg Cheryl Jackson 1 mg VERSED given in lab by Cheryl Jackson, ALFRDE via Peripheral IV. Ordered by Kadeem Taveras. Ntg 200mcg Verapamil 2.5mg Heparin RADIAL COCKTAIL 01/10/2018 5:48:30 PM 5 mL (Bolus) Kadeem Taveras 2000U 5 mL (Bolus) RADIAL COCKTAIL given in lab by Kadeem Taveras in Right Radial via Radial. Using [Solutio n Name]. Ordered by Kadeem Taveras. Reason: Ntg 200mcg Verapamil 2.5mg Heparin 2000U. VERSED 01/10/2018 5:52:58 PM 1 mg Cheryl Jackson 1 mg VERSED given in lab by Cheryl Jackson, ALFRED via Peripheral IV. Ordered by Kadeem Taveras. 1% XYLOCAINE 01/10/2018 5:59:13 PM 20 mL Kadeem Taveras 20 mL 1% XYLOCAINE given in lab by Kadeem Taveras in Right Groin via Subcutaneous. Ordered by Kadeem Taveras. NTG (IC) 01/10/2018 6:30:07 PM 200 mcg Kadeem Taveras 200 mcg NTG (IC) given in lab by Kadeem Taveras via Intra-coronary. Ordered by Kadeem Taveras. Medication (Drip) Medication Time Given Dosage/Unit Concentration/Unit Diluent (ml) Solution HEPARIN DRIP 01/10/2018 5:21:50 PM 900 units/hr 86743 units 250 D5W Patient arrived on 900 units/hr HEPARIN DRIP via Peripheral IV. Pump/Drip Flow = 9 ml/hr using D5[place] [address] units in 250 ml. HEPARIN DRIP 01/10/2018 6:51:00 PM 0 units/hr 32247 units 250 D5W 0 units/hr HEPARIN DRIP given in lab by Kadeem Taveras via Peripheral IV. Pump/Drip Flow = 0 ml/hr usi [place] D5W [place] [address] units in 250 ml. Ordered by Kadeem Taveras. IV Solutions 01/10/2018 5:29:56 PM 50 mL (IV) NaCl .9 IV Solutions given by Cheryl Jackson, ALFRED via Peripheral IV. Pump/Drip Flow using NaCl .9. Ordered by Kadeem Taveras. at [facility] Initial Case Assessment Cardiovascular HR Rhythm NIBP Chest Pain [address] 188/98 0 Edema Present Skin color Skin None Normal Warm Dry Circulatory - Right Pulses Dorsalis Pedis Femoral Radial 2 2 2 Scale (0,1,2,3,4,d) Circulatory - Left Pulses Dorsalis Pedis Femoral Radial 2 2 Scale (0,1,2,3,4,d) Circulatory - Lower Extremities Color Lower Right Color Lower Left Normal Normal Neurological State Oriented to time-place- Alert Moves all extremities person Respiration - General Respiration Rate SpO2 (%) O2 (lpm) (B/min) 12 98 0 Final Case Assessment Cardiovascular HR Rhythm NIBP Chest Pain 75 sr 132/104 0 Edema Present Skin color Skin None Normal Warm Dry Circulatory - Right Pulses Dorsalis Pedis Femoral Radial 2 2 2 Scale (0,1,2,3,4,d) Circulatory - Left Pulses Dorsalis Pedis Femoral Radial 2 2 Scale (0,1,2,3,4,d) Circulatory - Lower Extremities Color Lower Right Color Lower Left Normal Normal Neurological State Oriented to time-place- Alert Moves all extremities person Respiration - General Respiration Rate SpO2 (%) O2 (lpm) (B/min) 12 96 0 Chronological Log Time Study Chronological Log 17:20:50 Patient arrived via Bed. 17:20:50 Patient Name, D.O.B, / Armband Verified By R.N. 17:20:51 Consent signed by the physician and the patient and verified by the Methods And Procedures Analyst staff. 17:20:53 Pre-op and post- op instructions given; patient acknowledges understanding of instructions. 17:21:00 Patient has been NPO for More than 6Hrs. Patient arrived on 900 units/hr HEPARIN DRIP via Peripheral IV. Pump/Drip Flow = 9 ml/hr using D5W with [place] 17:21:[place] [address] units in 250 ml. 17:23:58 Allens test performed on the right radial and ulnar artery. 17:24:09 Skin Breakdown- none per patient 17:25:43 A # 20 IV was noted in the Antecubital (right). Grade = 0 Vitals capture started with the following parameters, Patient=Adult, Interval=5 min, Initial Pr sweuoz=900 mmHg, 17:28:03 Deflation Rate=5 mmHg, Cuff placed on Left Arm 17:29:25 IH=415 bpm, VXOH=636/95 mmhg, SpO2=96.0 %, Resp=13 B/min, Pain=0, Marlen=10, Dewitt=2 17:29:28 Patient Warmer Placed on the Table. 17:29:41 Oscar Prominences Protected IV Solutions given by Cheryl Jackson, ALFRED via Peripheral IV. Pump/Drip Flow using NaCl .9. Orde red by Kadeem Taveras. 17:29:56 at [facility] 17:30:17 History and physical on the chart or being dictated. Assessment: Initial Case, RC=671 BPM, Rhythm=st, MQBH=200/98 mmhg, Chest Pain=0, Edema=None, Co ying=Normal, Skin = Warm, Dry Right Pulses: Fish Ped=2, Femoral=2, Radial=2 Left Pulses: Fish Ped=2, Femoral=2 17:30:19 Lower Right Extremities: Color=Normal Lower Left Extremities: Color=Normal Neurological: State=Alert, Ox3, HA Respiration: Resp=12 B/min, SpO2=98 %, O2=0 lpm 17:31:07 Reference ECG taken 17:31:15 Right Radial and groin(s) prepped with 2% chlorhexidine, and draped after a 3 min. waiting time. 17:33:54 JG=419 bpm, OENQ=544/85 mmhg, SpO2=96.0 %, Resp=13 B/min, Pain=0, Marlen=10, Dewitt=2 17:36:30 Pressure channel 1 zeroed. 17:38:08 MD paged 17:38:45 MD arrived 17:38:53 CD=554 bpm, NVFO=975/89 mmhg, SpO2=96.0 %, Resp=10 B/min, Pain=0, Marlen=10, Dewitt=2 Time Out. Correct patient, correct procedure, correct physician, labs, allergies, and equipment verified with earth science laboratory technician 17:42:40 team present. Fire risk assesment completed (see hard stop sheet for coding). Time Out Conc urred by MD and individual staff in procedure. 17:43:52 Case Start 17:43:54 CA=767 bpm, OMUJ=478/91 mmhg, SpO2=96.0 %, Resp=11 B/min, Pain=0, Marlen=10, Dewitt=2 17:44:04 10 mL 1% XYLOCAINE given in lab by Kdaeem Taveras in Right Radial via Subcutaneous. Ordered by Kadeem Taveras. 17:44:38 1 mg VERSED given in lab by Cheryl Jackson, ALFRED via Peripheral IV. Ordered by Kadeem Taveras . 17:45:48 25 mcg FENTANYL given in lab by Cheryl Jackson, RN via Peripheral IV. Ordered by Rosanna Taveras. 17:47:28 1 mg VERSED given in lab by Cheryl Jackson, RN via Peripheral IV. Ordered by Kadeem Taveras . 17:47:51 Access site was Right Radial Artery . A SHEATH, FR6 TRANSRADIAL SLENDER 10CM FR 6 was advanced into the Radial (right) using the Perc utaneous 17:48:10 technique. 5 mL (Bolus) RADIAL COCKTAIL given in lab by Kadeem Taveras in Right Radial via Radial. Using [S olution Name]. 17:48:30 Ordered by Kadeem Taveras. Reason: Ntg 200mcg Verapamil 2.5mg Heparin 2000U. 17:48:47 JQ=225 bpm, XRXB=814/78 mmhg, SpO2=93 %, Resp=21 B/min A CATHETER, FR5 OPTITORQUE RADIAL TIG 4.0 FR 5 was advanced over a wire. OMNIPAQUE, 350 MG, 100 ML 100ML 17:50:38 was used for injections. Recorded Pressure: Ao, UV=773, Condition=Condition 1 17:52:10 (Aorta) Ao 127/61/84 17:52:52 A WIRE, HYDROSTEER 150CM ANGLED GLIDE 150CM was inserted via Radial (right). 17:52:58 1 mg VERSED given in lab by Cheryl Jackson, RN via Peripheral IV. Ordered by Kadeem Taveras . 17:53:46 SU=639 bpm, BJKG=090/53 mmhg, SpO2=90.0 %, Resp=12 B/min 17:53:57 Wire removed 17:56:12 Catheter was removed 17:56:31 Transitioning to groin access per 17:59:13 20 mL 1% XYLOCAINE given in lab by Kadeem Taveras in Right Groin via Subcutaneous. Ordered b Kadeem Leo. 17:59:15 HR=96 bpm, SYFL=706/68 mmhg, SpO2=91.0 %, Resp=19 B/min, Pain=0, Marlen=10, Dewitt=2 18:00:45 Access site was Right Femoral Artery. A INTRODUCER SET, MICROPUNCTURE STIFF FR 5 was advanced into the Fem Art (right) using the Perc utaneous 18:00:51 technique. A SHEATH, FR6.5 PRELUDE 11CM FR 6.5 was exchanged in the Fem Art (right). This was necessary in order to 18:02:46 accomodate a larger catheter. A PIGTAIL ANG. 145 INFINITI CATHETER FR 6 was advanced over a wire. OMNIPAQUE, 350 MG, 100ML 10 0ML was 18:03:23 used for injections. 18:03:44 HR=93 bpm, LQZK=430/80 mmhg, SpO2=92.0 %, Resp=15 B/min Recorded Pressure: LV, HR=97, Condition=Condition 1 18:04:34 (Left Ventricle) LV 143/1/28 18:06:14 The LV was injected at 10 cc/sec for a total of 20. OMNIPAQUE, 350 MG, 50ML 50ML used. Recorded Pressure: LV, Ao, HR=91, Condition=Condition 1 18:06:57 (Left Ventricle) LV 154/0/1, (Aorta) Ao 157/62/104 After removing the current catheter a JL 4.5 INFINITI CATHETER FR 6 was advanced over a WIRE, E XCHANGE 260CM 18:07:23 3MMJ 260CM. 18:08:49 HR=87 bpm, NXJQ=509/72 mmhg, SpO2=93.0 %, Resp=18 B/min 18:09:39 The LCA was injected and visualized at various angles. OMNIPAQUE, 350 MG, 100ML 100ML used . After removing the current catheter a 3DRC INFINITI CATHETER FR 6 was advanced over a WIRE, EXC HANGE 260CM 18:12:29 3MMJ 260CM. 18:13:50 HR=90 bpm, JPPQ=275/73 mmhg, SpO2=93.0 %, Resp=14 B/min 18:14:24 The RCA was injected and visualized at various angles. OMNIPAQUE, 350 MG, 100ML 100ML used . After removing the current catheter a 3DRC INFINITI CATHETER FR 4 was advanced over a WIRE, EXC HANGE 260CM 18:15:41 3MMJ 260CM. After removing the current catheter a 3DRC INFINITI CATHETER FR 4 was advanced over a WIRE, EXC HANGE 260CM 18:18:15 3MMJ 260CM. 18:18:53 HR=90 bpm, JWHC=334/78 mmhg, SpO2=93.0 %, Resp=13 B/min 18:20:11 The RCA was injected and visualized at various angles. OMNIPAQUE, 350 MG, 100ML 100ML used . 18:21:47 Catheter was removed 18:23:50 HR=85 bpm, AXRD=789/74 mmhg, SpO2=96.0 %, Resp=10 B/min 18:23:53 Activated Clotting Time Drawn A JR 4.0 SH GUIDE CATHETER FR 6 was advanced over a wire. OMNIPAQUE, 350 MG, 100ML 100ML was us ed for 18:27:45 injections. 18:27:55 ACT (Normal Range 90-180) = 240 18:28:51 HR=84 bpm, IJLB=922/80 mmhg, SpO2=94.0 %, Resp=12 B/min 18:30:07 200 mcg NTG (IC) given in lab by Kadeem Taveras via Intra-coronary. Ordered by Kadeem Taveras . 18:31:52 Pressure channel 1 zeroed. 18:33:03 A PRIME WIRE, VERRATA 185CM 185CM was inserted via Fem Art (right). 18:33:48 CZ=367 bpm, ZCUS=421/81 mmhg, SpO2=92.0 %, Resp=16 B/min 18:35:21 Interventional wire has crossed the lesion 18:36:04 Flow Wire was was placed in the RCA. The IFR measures 0.97 Percent. 18:37:13 Catheter and wire removed without difficulty 18:38:31 An injection in the Fem Art (right) was made through the SHEATH, FR6.5 PRELUDE 11CM FR 6.5. 18:38:51 HR=88 bpm, OJCX=390/64 mmhg, SpO2=93.0 %, Resp=14 B/min 18:41:22 No case complications noted. 18:41:23 Cine recording checked. 18:42:06 Bedside Report will be given. 18:42:16 Case End (Physician broke scrub) Assessment: Final Case, HR=75 BPM, Rhythm=sr, XAOD=191/104 mmhg, Chest Pain=0, Edema=None, Col or=Normal, Skin = Warm, Dry Right Pulses: Fish Ped=2, Femoral=2, Radial=2 Left Pulses: Fish Ped=2, Femoral=2 18:44:00 Lower Right Extremities: Color=Normal Lower Left Extremities: Color=Normal Neurological: State=Alert, Ox3, HA Respiration: Resp=12 B/min, SpO2=96 %, O2=0 lpm 18:44:23 HR=76 bpm, WDYP=791/104 mmhg, SpO2=96.0 %, Resp=12 B/min Radial Compression Device Used. 15 mLs of air placed in BAND, RADIAL COMPRESSION TR SHORT 24 2 4CM. Affected 18:45:30 hand 96 % O2 saturation. 18:46:58 A Left Heart Cath was performed. 18:47:57 In the Fem Art (right) the SHEATH, FR6.5 PRELUDE 11CM FR 6.[address] by Kadeem Kennedy. 18:48:23 Activated Clotting Time Drawn 18:48:58 HR=74 bpm, NIBP=60/35 mmhg, SpO2=94.0 %, Resp=18 B/min 18:50:30 HR=78 bpm, WJWY=437/78 mmhg, SpO2=95.0 %, Resp=15 B/min 0 units/hr HEPARIN DRIP given in lab by Kadeem Taveras via Peripheral IV. Pump/Drip Flow = 0 ml /hr using D5W with a 18:51:[place] [address] units in 250 ml. Ordered by Kadeem Taveras. 18:52:28 ACT (Normal Range 90-180) = 232 18:55:43 HR=75 bpm, AFLR=920/49 mmhg, SpO2=93.0 %, Resp=19 B/min 19:00:56 Patient moved to [facility] End Study - Contrast Media Used In Study Contrast Total Opened (mL) Total Used (mL) Total Wasted (mL) Omnipaque 90 90 0 End Study - Maximum Contrast Load Max Contrast Load (mL) 506.5 End Study - Radiation Exposure Fluoro Time (minutes) 6.8 End Study - Patient Disposition Complications Transferred To Telemetry Bed
[2018-01-10] MEDS: Sod Chloride 0.9% Inj 1,000 ML IV.CONT SCH (19:15)
[2018-01-10] MEDS: amLODIPine 5 MG Tablet PO SCH (20:15)
--- NOTE | 2018-01-10 20:23 | MB ---
cc: Kadeem Taveras MD DATE: 01/10/2018 REASON FOR CONSULTATION: Evaluation of non-ST segment elevation NE. HISTORY OF PRESENT ILLNESS: Kamille Wilson is a 77-year-old woman with no previous cardiac history. She has been having intermittent left shoulder and neck pain for the past 2 months, and also some numbness going down her left hand. She went to a chiropractor and her blood pressure was severely elevated, so she went to [facility]. Initial troponin was 0.86. It since has risen to 2.19. The pain comes and goes on its own. She is currently not having active pain while I am seeing her. She has had no typical chest pain, just the pain in her left shoulder and neck. PAST MEDICAL HISTORY: She has Sjogren syndrome. She has been on CellCept, Plaquenil, Imuran and Arava, and has not tolerated those treatments. Has rheumatoid arthritis involving her hands and feet. She had hypertension last year while on CellCept, but has not been checked that often, and has not been formally treated for hypertension. Lipid status is unknown. She was treated for hepatitis C and apparently cured of hepatitis C before. She has had a previous kidney stone, and required open surgery of the left kidney, but it passed without having to actually open the kidney. CARDIAC RISK FACTORS: Include smoking 1/2 pack per day from age 23 to age 63, rheumatoid arthritis, family history of coronary artery disease in the mother and newly diagnosed hypertension. SOCIAL HISTORY: She has an occasional drink. She has smoked 1/2 pack per day for 40 years. FAMILY HISTORY: Mother had bypass surgery. Father had ulcers. She has a brother, who had a stroke, had kidney stones, and has ankylosing spondylitis. PAST SURGICAL HISTORY: Includes a surgery of her left kidney with a long flank incision. REVIEW OF SYSTEMS: Negative for bleeding. Remaining review of systems negative. PHYSICAL EXAMINATION: GENERAL: Well-developed, well-nourished, anxious white female, in no acute distress. VITAL SIGNS: Show that she is hypertensive. HEENT: Unremarkable. NECK: Shows no JVD. No bruits. CHEST: Clear to auscultation. CARDIAC: Shows normal S1, normal S2. Regular rate and rhythm. I do not appreciate murmurs or gallops. ABDOMEN: Soft, nontender. No masses. EXTREMITIES: No clubbing, cyanosis or edema. Radial, femoral and pedal pulses are intact. DIAGNOSTIC STUDIES: Her EKG shows sinus rhythm without acute ST-T wave changes. Laboratory data are significantly normal. PT, PTT are normal. CBC is normal. Creatinine is 0.76. Troponin went from 0.86 to 2.19. TSH is normal. She has had a head CT that shows no acute findings. She has had a cervical spine CT showing severe degenerative joint disease. She has had a chest x-ray showing no acute disease. Shoulder x-ray was within normal limits. IMPRESSION: Acute non-ST segment elevation myocardial infarction. PLAN: Perform diagnostic catheterization with possible intervention. I plan on doing this from the right radial approach. Probably will give her some additional IV beta constance, nitroglycerin for her hypertension. She has received aspirin already. We will check lipid status. I explained catheterization procedure including risks of stroke, heart attack, and . Her and daughter were present during the evaluation. Further therapy to be determined. MD SIENNA Fox/rh , 04:58 PM , 05:07 PM
[2018-01-10] MEDS ORDERED: Metoprolol Tartrate 25 MG Tablet PO SCH (21:00)
[2018-01-10] MEDS: Metoprolol Tartrate 25 MG Tablet PO SCH (21:14)
--- NOTE | 2018-01-10 23:46 | MA ---
cc: Kadeem Taveras MD DATE: 01/10/2018 PROCEDURES PERFORMED: Right radial arterial access, right femoral arterial access, left heart catheterization, left ventriculography, coronary angiography, fractional flow reserve of the right coronary artery, right femoral angiography. BRIEF HISTORY: Kamille Wilson is a 77-year-old woman who came into the hospital with severe hypertension. She has been having pain in her left shoulder and arm and also some numbness in the left arm. It was felt that possibly this was an anginal equivalent considering that her troponin started at about 0.8 and went up to 2 point something. For this reason, cardiac catheterization was advised. DESCRIPTION OF PROCEDURE: The patient was brought to the cardiac catheterization lab in the fasting state. The right wrist and right groin were prepped and draped in sterile fashion. Using 1% lidocaine for local anesthesia, a Terumo slender sheath was easily inserted into the right radial artery. I was able to pass a catheter up into the right subclavian, but was not able to cross into the aorta. Angiography showed visualization of the right subclavian, right mammary and the right vertebral artery, but I could not see a channel to the aorta. It is possible that the right subclavian was occluded. I decided to abandon the right radial arterial approach. The right groin was already prepped using 1% lidocaine for local anesthesia and with a micro catheter set, I was able to insert a 6 Mohawk sheath. An angled pigtail catheter was then used to obtain an LV gram, followed by a pullback. Coronary angiography was performed with a 6 Mohawk left 4.5 and a 3DRC catheter. There was marked dampening with the 3DRC catheter. I used a 4 Mohawk 3DRC catheter for additional views. The ostium of the right coronary artery had about a 50% ostial lesion, so I opted to do a fractional flow reserve. Intracoronary nitroglycerin was given. I used a 6 Mohawk right 4 Geovanna guiding catheter with side holes and a [place] wire and obtained an IFR of the right coronary artery of 0.97. Based on that, I elected to treat her medically. Angiography was then obtained of the right femoral artery via the sheath. The sheath was right at the common femoral to superficial femoral artery bifurcation with a very high bifurcation only slightly below the top of the femoral head. I did not feel that the anatomy was suitable for a closure device and so, the sheath will be pulled manually once her ACT comes down. The sheath in the right wrist was removed with a Terumo band placed. The right femoral sheath was sutured in place and will be pulled later this evening. There were no complications. Total contrast was just under 100 mL. There was about 10 mL of blood loss. FINDINGS: 1. HEMODYNAMICS: Left ventricular pressure is 154/0 with an end-diastolic pressure of 1. Aortic pressure was 157/62 with a mean of 104. There was no gradient during pullback from the left ventricle to the aorta. 2. LEFT VENTRICULOGRAPHY: Left ventriculography shows vigorous contraction of the left ventricle with an estimated ejection fraction of 80% and no wall motion abnormalities. 3. CORONARY ANGIOGRAPHY: There is mild coronary artery calcification. Left main coronary artery appears normal. Left anterior descending artery at the bifurcation of the major diagonal branch. The mid LAD has about 25% irregularities. The remainder of the LAD appears normal. Circumflex artery has about 20% stenosis of the major obtuse marginal branch. The right coronary artery has an ostial 50% and then mid 20% disease and 40% PDA disease. The right coronary artery is dominant. IFR of the right coronary artery was 0.97. CONCLUSION: 1. Normal hemodynamics. 2. Above normal ejection fraction consistent with hypertensive disease. 3. Mild nonocclusive coronary artery disease. It seems likely her myocardial infarction was related to extreme hypertension and possible coronary spasm. PLAN: I will add amlodipine to her regimen as well as a beta constance. We will add a statin once we have her lipids assessed. Possible discharge tomorrow if stable. MD SIENNA Fox/sara , 06:58 PM , 07:08 PM
[2018-01-11] MEDS: Sod Chloride 0.9% Inj 1,000 ML IV.CONT SCH (05:12)
[2018-01-11 05:37] LABS: Eos # (Auto) 0.2 th/mm3 (0.0-0.4); Hemoglobin 11.6 gm/dL (11.6-15.3); Lymph # (Auto) 1.2 th/mm3 (1.0-4.8); Lymph % (Auto) 28.2 % (9.0-44.0); Mean Corpuscular Hemoglobin 30.8 pg (27.0-34.0); Mean Corpuscular Volume 93.5 fL (80.0-100.0); Mean Platelet Volume 7.7 fL (7.0-11.0); Mono # (Auto) 0.5 th/mm3 (0.0-0.9); Mono % (Auto) 11.1 % (0.0-8.0); Neut # (Auto) 2.3 th/mm3 (1.8-7.7); Neut % (Auto) 55.7 % (16.0-70.0); Platelet Count 217 th/mm3 (150-450); Red Blood Count 3.75 mil/mm3 (4.00-5.30); White Blood Count 4.2 th/mm3 (4.0-11.0)
[2018-01-11 06:12] LABS: Carbon Dioxide 25.3 meq/L (21.0-32.0); Potassium 3.4 meq/L (3.5-5.1)
[2018-01-11 06:15] LABS: Chol/HDL Ratio 5.15 Ratio; HDL Cholesterol 42.5 mg/dL (40.0-60.0)
[2018-01-11] MEDS: Metoprolol Tartrate 25 MG Tablet PO SCH (08:05)
[2018-01-11] MEDS: amLODIPine 5 MG Tablet PO SCH (08:05)
--- NOTE | 2018-01-11 09:18 | P.PNCA ---
Subjective Interval history: Left shoulder hurts. No angina Physical Exam Vital signs: Vital Signs 01/10/18 10:52 01/10/18 12:00 01/10/18 15:13 Temperature 98.5 F Pulse Rate 90 80 82 Respiratory Rate 18 18 18 Blood Pressure 230/93 H 199/86 H 184/69 H Pulse Oximetry 96 96 96 01/10/18 15:50 01/10/18 17:24 01/10/18 19:00 Temperature Pulse Rate 82 69 Respiratory Rate 18 Blood Pressure 190/91 H Pulse Oximetry 96 95 01/10/18 20:00 01/10/18 21:00 01/10/18 22:00 Temperature 98.3 F Pulse Rate 70 66 65 Respiratory Rate 18 Blood Pressure 133/76 Pulse Oximetry 96 01/10/18 23:00 01/11/18 00:00 01/11/18 01:00 Temperature 98.0 F Pulse Rate 67 68 67 Respiratory Rate 17 Blood Pressure 123/60 Pulse Oximetry 97 01/11/18 01:30 01/11/18 02:00 01/11/18 03:00 Temperature Pulse Rate 68 67 Respiratory Rate 16 Blood Pressure Pulse Oximetry 01/11/18 04:00 01/11/18 05:00 01/11/18 06:00 Temperature 98.2 F Pulse Rate 67 66 63 Respiratory Rate 15 Blood Pressure 110/56 L Pulse Oximetry 96 01/11/18 07:00 01/11/18 07:37 01/11/18 08:00 Temperature 98.1 F Pulse Rate 60 63 63 Respiratory Rate 18 Blood Pressure 122/68 Pulse Oximetry 97 01/11/18 08:38 01/11/18 09:00 Temperature Pulse Rate 65 Respiratory Rate Blood Pressure Pulse Oximetry 97 Intake & Output 01/10/18 01/11/18 01/11/18 18:59 06:59 18:59 Intake Total 2530 / 2530 Output Total 600 / 600 Balance 193 / 193 Weight 71 kg 69.4 kg Intake: IV 2049 Heparin/NS PF Inj 1,500 ML @ 0 mls/hr .ROUTE [facility] Rx#: [id number] Heparin/D5W 25,000 U/250 mL 25, 50 / 50 000 unit In 250 ml @ Per Protocol IV.CONT TITRATE PRN Rx #:[id number] NS Inj 1,000 ML @ 100 mls/hr IV 1999 .CONT .Q10H ANA Rx#:[id number] Oral 480 / 480 Output: Urine 600 / 600 Other: # Voids 2 Date of Last Bowel Movement 01/09/18 01/09/18 Narrative: Alert Chest CTA CV S1S2 RRR Abd soft Right Wrist/ Right groin are fine No edema Assessment and Plan - Assessment (1) Cervical disc disease Code(s): M50.90 - Cervical disc disorder, unspecified, unspecified cervical region Status: Acute (2) Hyperlipidemia Code(s): E78.5 - Hyperlipidemia, unspecified Status: Acute (3) Hypertensive emergency Code(s): I16.1 - Hypertensive emergency Status: Acute (4) Non-ST elevated myocardial infarction Code(s): I21.4 - Non-ST elevation (NSTEMI) myocardial infarction Status: Acute (5) Coronary artery disease Code(s): I25.10 - Atherosclerotic heart disease of jamul coronary artery without angina pectoris Status: Acute - Plan Stable. OK to DC home on ASA 81mg, Clopidogrel 75mg, Atorva 40mg, Amlodipine 5mg , Metoprolol 25mg bid. OV 1-2 weeks.
--- NOTE | 2018-01-11 09:18 | P.PN ---
Subjective Interval history: Follow up for HTN urgency, NSTEMI. Patient is currently doing well. No CP, SOB, fever, chills. s/p Cardiac cath. Cardiology cleared for discharge. Physical Exam Vital signs: Vital Signs 01/10/18 10:52 01/10/18 12:00 01/10/18 15:13 Temperature 98.5 F Pulse Rate 90 80 82 Respiratory Rate 18 18 18 Blood Pressure 230/93 H 199/86 H 184/69 H Pulse Oximetry 96 96 96 01/10/18 15:50 01/10/18 17:24 01/10/18 19:00 Temperature Pulse Rate 82 69 Respiratory Rate 18 Blood Pressure 190/91 H Pulse Oximetry 96 95 01/10/18 20:00 01/10/18 21:00 01/10/18 22:00 Temperature 98.3 F Pulse Rate 70 66 65 Respiratory Rate 18 Blood Pressure 133/76 Pulse Oximetry 96 01/10/18 23:00 01/11/18 00:00 01/11/18 01:00 Temperature 98.0 F Pulse Rate 67 68 67 Respiratory Rate 17 Blood Pressure 123/60 Pulse Oximetry 97 01/11/18 01:30 01/11/18 02:00 01/11/18 03:00 Temperature Pulse Rate 68 67 Respiratory Rate 16 Blood Pressure Pulse Oximetry 01/11/18 04:00 01/11/18 05:00 01/11/18 06:00 Temperature 98.2 F Pulse Rate 67 66 63 Respiratory Rate 15 Blood Pressure 110/56 L Pulse Oximetry 96 01/11/18 07:00 01/11/18 07:37 01/11/18 08:00 Temperature 98.1 F Pulse Rate 60 63 63 Respiratory Rate 18 Blood Pressure 122/68 Pulse Oximetry 97 01/11/18 08:38 01/11/18 09:00 Temperature Pulse Rate 65 Respiratory Rate Blood Pressure Pulse Oximetry 97 Intake & Output 01/10/18 01/11/18 01/11/18 18:59 06:59 18:59 Intake Total 2530 / 2530 Output Total 600 / 600 Balance 1929 / 1929 Weight 71 kg 69.4 kg Intake: IV 2049 Heparin/NS PF Inj 1,500 ML @ 0 10 / 10 mls/hr .ROUTE .[facility] Rx#: [id number] Heparin/D5W 25,000 U/250 mL 25, 50 / 50 000 unit In 250 ml @ Per Protocol IV.CONT TITRATE PRN Rx #:[id number] NS Inj 1,000 ML @ 100 mls/hr IV 1999 .CONT .Q10H ANA Rx#:[id number] Oral 480 / 480 Output: Urine 600 / 600 Other: # Voids 2 Date of Last Bowel Movement 01/09/18 01/09/18 Results - Labs CBC & Chem 7: 01/11/18 05:09 01/11/18 05:09 Laboratory Results - last 24 hr 01/10/18 01/10/18 01/10/18 11:00 12:30 12:30 CBC w Diff Auto diff final WBC 4.9 RBC 4.19 Hgb 13.1 Hct 38.8 MCV 92.5 MCH 31.3 MCHC 33.8 RDW 13.2 Plt Count 261 MPV 7.9 Neut % (Auto) 68.5 Lymph % (Auto) 22.1 Sierra % (Auto) 6.9 Eos % (Auto) 1.8 Baso % (Auto) 0.7 Neut # (Auto) 3.4 Lymph # (Auto) 1.1 Sierra # (Auto) 0.3 Eos # (Auto) 0.1 Baso # (Auto) 0.0 WBC Differential . Differential Comment . PT 10.6 INR 1.0 APTT 25.4 Sodium Potassium Chloride Carbon Dioxide Anion Gap BUN Creatinine Estimated GFR Random Glucose Calcium Total Bilirubin AST ALT Alkaline Phosphatase Total Creatine Kinase CK-MB (CK-2) CK-MB (CK-2) % Troponin I Total Protein Albumin Triglycerides Cholesterol LDL Cholesterol, Calc HDL Cholesterol Cholesterol/HDL Ratio TSH Ur Collection Type Clean catch Urine Color Straw Urine Clarity Clear Urine pH 5.5 Ur Specific [place] Less/equal 1.005 Urine Protein Negative Urine Glucose (UA) Negative Urine Ketones Negative Urine Occult Blood Negative Urine Nitrate Negative Urine Bilirubin Negative Urine Urobilinogen 0.2 Ur Leukocyte Esterase Negative Urine WBC 0-5 Ur Squamous Epith Cells 0-5 Micro UA Comment Culture not ind Ur Microscopic Review Microscopic reviewed Urine Culture Comments Culture not ind 01/10/18 01/10/18 01/10/18 12:30 12:30 15:15 CBC w Diff WBC RBC Hgb Hct MCV MCH MCHC RDW Plt Count MPV Neut % (Auto) Lymph % (Auto) Sierra % (Auto) Eos % (Auto) Baso % (Auto) Neut # (Auto) Lymph # (Auto) Sierra # (Auto) Eos # (Auto) Baso # (Auto) WBC Differential Differential Comment PT INR APTT Sodium 141 Potassium 3.9 Chloride 108 H Carbon Dioxide 24.8 Anion Gap 8 BUN 14 Creatinine 0.76 Estimated GFR 74 L Random Glucose 98 Calcium 8.7 Total Bilirubin 0.4 AST 30 ALT 34 Alkaline Phosphatase 52 Total Creatine Kinase 198 H CK-MB (CK-2) 4.5 H CK-MB (CK-2) % 2.3 Troponin I 0.86 H* 2.19 H* D Total Protein 7.9 Albumin 3.8 Triglycerides Cholesterol LDL Cholesterol, Calc HDL Cholesterol Cholesterol/HDL Ratio TSH 0.716 Ur Collection Type Urine Color Urine Clarity Urine pH Ur Specific [place] Urine Protein Urine Glucose (UA) Urine Ketones Urine Occult Blood Urine Nitrate Urine Bilirubin Urine Urobilinogen Ur Leukocyte Esterase Urine WBC Ur Squamous Epith Cells Micro UA Comment Ur Microscopic Review Urine Culture Comments 01/11/18 01/11/18 05:09 05:09 CBC w Diff WBC 4.2 RBC 3.75 L Hgb 11.6 Hct 35.0 MCV 93.5 MCH 30.8 MCHC 33.0 RDW 14.0 Plt Count 217 MPV 7.7 Neut % (Auto) 55.7 Lymph % (Auto) 28.2 Sierra % (Auto) 11.1 H Eos % (Auto) 4.0 Baso % (Auto) 1.0 Neut # (Auto) 2.3 Lymph # (Auto) 1.2 Sierra # (Auto) 0.5 Eos # (Auto) 0.2 Baso # (Auto) 0.0 WBC Differential . Differential Comment Auto diff final PT INR APTT Sodium 143 Potassium 3.4 L Chloride 109 H Carbon Dioxide 25.3 Anion Gap 9 BUN 12 Creatinine 0.70 Estimated GFR 82 L Random Glucose 89 Calcium 8.0 L Total Bilirubin AST ALT Alkaline Phosphatase Total Creatine Kinase 159 CK-MB (CK-2) CK-MB (CK-2) % Troponin I Total Protein Albumin Triglycerides 226 H Cholesterol 219 H LDL Cholesterol, Calc 131 H HDL Cholesterol 42.5 Cholesterol/HDL Ratio 5.15 TSH Ur Collection Type Urine Color Urine Clarity Urine pH Ur Specific [place] Urine Protein Urine Glucose (UA) Urine Ketones Urine Occult Blood Urine Nitrate Urine Bilirubin Urine Urobilinogen Ur Leukocyte Esterase Urine WBC Ur Squamous Epith Cells Micro UA Comment Ur Microscopic Review Urine Culture Comments - Imaging Impressions Cervical Spine CT 01/10/18 12:16 CONCLUSION: 1. Moderate to severe degenerative disc disease. 2. Broad-based posterior disc protrusions at the C4-5 and C5-6 with epidural effacement but no significant spinal cord compression. 3. Moderate to severe degenerative disc disease at C6-7 with posterior disc osteophyte complex causing mild epidural effacement. 4. Mild to moderate foraminal encroachment as described. 5. No acute bony abnormality. Chest X-Ray 01/10/18 12:16 CONCLUSION: COPD No evidence of acute process. Head CT 01/10/18 12:16 CONCLUSION: No acute intracranial findings. . Shoulder X-Ray 01/10/18 12:16 CONCLUSION: Left shoulder series within normal limits. Assessment and Plan - Assessment (1) Hypertensive emergency Code(s): I16.1 - Hypertensive emergency Status: Acute (2) Non-ST elevated myocardial infarction Code(s): I21.4 - Non-ST elevation (NSTEMI) myocardial infarction Status: Acute (3) Elevated troponin Code(s): R74.8 - Abnormal levels of other serum enzymes Status: Acute - Plan NSTEMI Hypertensive emergency -elevated blood pressure with associated elevated troponins. - Discussed with cardiology. - Will DC patient home with aspirin 81 mg, Plavix 75 mg, atorvastatin 40 mg, amlodipine 5 mg, metoprolol 25 mg twice daily. - Outpatient follow-up with cardiology in 2 weeks. Discharge patient to home Condition on discharge: Improved Cardiac diet as tolerated Ad Zara activity Rx written: Amlodipine 5 mg daily Aspirin 81 mg daily Atorvastatin 40 mg daily Plavix 75 mg daily Metoprolol tartrate 25 mg p.o. twice daily Follow-up with primary care physician as needed and cardiology within 1-2 weeks
--- NOTE | 2018-01-11 11:57 | ECG ---
Date Performed: 01/11/2018 Time Performed: 05:32:34 PTAGE: 77 years EKG: Sinus rhythm Prolonged QT interval Possible inferior infarct - age undetermined Abnormal ECG PREVIOUS TRACING : 01/10/2018 22.49 DOCTOR: Rashi Ibrahim Interpretating Date/Time 01/11/2018 11:55:49
--- NOTE | 2018-01-11 12:01 | ECG ---
Date Performed: 01/10/2018 Time Performed: 22:49:40 PTAGE: 77 years EKG: Sinus rhythm Prolonged QT interval Possible inferior infarct - age undetermined Abnormal ECG PREVIOUS TRACING : 01/10/2018 12.26 DOCTOR: Rashi Ibrahim Interpretating Date/Time 01/11/2018 11:57:26
--- NOTE | 2018-01-11 22:22 | ECG ---
Date Performed: 01/10/2018 Time Performed: 12:26:55 PTAGE: 77 years EKG: Sinus rhythm NORMAL ECG NO PREVIOUS TRACING DOCTOR: Rashi Ibrahim Interpretating Date/Time 01/11/2018 22:14:24
== END 2018-01-11 10:30 | disposition home or self-care (01) ==
LOC: PHED 10:42 → PHEDA 14:17 → HCIS 15:56
PROVIDERS: ADMIT Hospitalist; ATTEND Hospitalist